=== PATIENT | female | born 1995 | race Caucasian/White ===

== ENCOUNTER → 2016-08-21 | Outpatient (CLI) | payer BC ==
--- NOTE | 2016-08-25 10:31 | PULMONARY FUNCTION TEST ---
INTERPRETATION: The simple spirometry reveals normal airflow, flow volume loop appears to be normal as is the volume time curve.
== END | disposition home or self-care (01) ==
LOC: C.RC 13:36
PROVIDERS: ATTEND Family Medicine
DX: R05 Cough (principal)